=== PATIENT | female | born 1995 | race Native Hawaiian/Other Pacific Islander ===

== ENCOUNTER → 2022-04-13 | Outpatient (CLI) | payer OTHER | LOC: COL.RAD 10:47 | DX: N93.9 Abnormal uterine and vaginal bleeding, unspecified (principal) ==

== ENCOUNTER 2023-11-22 03:05 | Outpatient (CLI) | payer OTHER ==
[~2023-11-22] VITALS: Ht 154.9 cm; Wt 89.1 kg
[~2023-11-22 03:05] MED LIST: CEPHALEXIN500 M1 PO
[2023-11-22] MEDS ORDERED: LR 1,000 ML IV PRN (03:15)
--- NOTE | 2023-11-22 03:15 | NUR ---
PATIENT ARRIVED TO UNIT VIA WHEELCHAIR STATING HER CONTRACTIONS STARTED AROUND 0245. DENIES LEAKING OF FLUID OR VAGINAL BLEEDING. STATES "SHE HAS DRANK A LOT OF WATER TODAY". PATIENT CHANGED INTO HOSPTIAL GOWN. [id number].
[2023-11-22] MEDS ORDERED: ASPIRIN 81M81 MG/TA2 PO (03:27)
[2023-11-22] MEDS ORDERED: PRENATAL TABLET PO (03:27)
[2023-11-22 04:00] VITALS: BP 116/68; PULSE 95; TEMP 98.5
[2023-11-22 04:30] VITALS: BP 121/70; PULSE 90
[2023-11-22 04:43] LABS: COLLECTION METHOD CLEAN CATCH
[2023-11-22 04:54] LABS: URINE APPEARANCE CLEAR (CLEAR/HAZY); URINE BLOOD 1+ (NEGATIVE); URINE COLOR YELLOW (YELLOW); URINE GLUCOSE NEGATIVE (NEGATIVE); URINE KETONE NEGATIVE (NEGATIVE); URINE NITRATE NEGATIVE (NEGATIVE); URINE PROTEIN(semi-quant) NEGATIVE (NEGATIVE); URINE UROBILINOGEN 0.2 E.U/dL (0.2-1.0)
[2023-11-22 05:00] VITALS: BP 111/61; PULSE 93
[2023-11-22 05:06] LABS: MUCOUS PRESENT (NOT PRESENT); URINE BACTERIA RARE /hpf (NONE SEEN); URINE RBC 0-2 /hpf (0-2); URINE WBC 0-2 /hpf (0-2)
[2023-11-22 05:30] VITALS: BP 111/69; PULSE 81
[2023-11-22] MEDS ORDERED: Terbutaline 1 MG/ML 1 ML AMP SQ ONE (05:30)
[2023-11-22 06:08] VITALS: BP 133/70; PULSE 93
--- NOTE | 2023-11-22 06:15 | NUR ---
PATIENT EDUCATED ON TAKING NEW PRESCRIPTION OF MACROBID, STAYING WELL HYDRATED, KEEPING SCHEDULED APPOINTMENTS. QUESTIONS INVITED AND ANSWERED. PATIENT AMBULATORY OFF UNIT.
== END 2023-11-22 06:15 | disposition home or self-care (01) ==
LOC: LDRO 03:05 → LDR 03:11 → LDRO 06:15
PROVIDERS: Obstetrics & Gynecology
DX: O47.02 False labor before 37 completed weeks of gestation, second trimester (principal); Z3A.23 23 weeks gestation of pregnancy
CPT/HCPCS: OP; J3105

== ENCOUNTER 2024-02-19 19:10 | Outpatient (CLI) | payer OTHER ==
[~2024-02-19] VITALS: Ht 154.9 cm; Wt 102.3 kg
[2024-02-19] VITALS (7 sets, daily range): BP systolic 126–143; BP diastolic 69–87; PULSE 81–97
[~2024-02-19 19:10] MED LIST changes: +ASPIRIN 81M81 MG/TA2 PO; +PRENATAL TABLET PO
--- NOTE | 2024-02-19 19:20 | NUR ---
G3L1 at 36 weeks and 3 days arrives to unit with complaint of headache and elevated blood pressure at home. Pt reports last blood pressure at home was 152/81 and she last took tylenol at 1530 but headache did not get better. Pt reports positive movement, denies contractions, or loss of fluid. Pt oriented to room, call light within reach, bed in low and locked position. US and toco explained and applied. Vitals obtained and blood pressure to every 15 minutes. Admission assessment started. Contraction on toco during assessment, patient unaware.
[2024-02-19] MEDS ORDERED: LR 1,000 ML IV PRN (19:45)
[2024-02-19 19:59] LABS: COLLECTION METHOD CLEAN CATCH
[2024-02-19 20:02] LABS: MEAN CELL VOLUME 72 fl (80.0-100.0); MEAN CORPUSCULAR HGB CONC 31 g/dl (33.0-37.0); MEAN PLATELET VOLUME 9.1 fl (7.4-10.4); PLATELET COUNT 319 K/mm3 (130-400); RED BLOOD COUNT 4.33 M/mm3 (4.10-5.30); REDCELL DISTRIBUTION WIDTH-CV 17.5 % (11.5-14.5)
[2024-02-19 20:10] LABS: HEMATOCRIT 31.2 % (37.0-47.0); HEMOGLOBIN 9.7 g/dl (12.5-16.0); MEAN CORPUSCULAR HEMOGLOBIN 22 pg (27-31)
[2024-02-19 20:29] LABS: ALBUMIN 2.6 g/dL (3.5-5.0); BILIRUBIN,TOTAL 0.2 mg/dL (0.2-1.2); CALCIUM 9.7 mg/dL (8.4-10.2); CREATININE, serum 0.72 mg/dL (0.57-1.11); POTASSIUM 3.9 mEq/L (3.5-4.5); TOTAL PROTEIN 7.1 g/dl (6.2-8.1)
--- NOTE | 2024-02-19 20:35 | NUR ---
Dr. Ross on unit, reviewed resulted lab values and FHR tracing. No need to check cervix per Dr. Ross. Physician then to bedside to review plan of care with patient. Plan to monitor closely at home and continue taking tylenol/tylenol PM. Pt agreeable to plan.
[2024-02-19] MEDS ORDERED: NATURAL IRON65 MG (20:37)
[2024-02-19 20:57] LABS: ANISOCYTOSIS 2+; BAND 6 % (0-10); HYPOCHROMIA 2+; LYMPHOCYTE 21 % (20.0-51.0); NEUTROPHILS 73 % (42.0-75.2); NUCLEATED RED BLOOD CELL 1 (0-6); PLATELET ESTIMATE NORMAL (NORMAL)
[2024-02-19 20:58] LABS: MICROCYTOSIS 1+
[2024-02-19 21:00] LABS: PH 5.5 (5.0-8.5); URINE APPEARANCE Cloudy (CLEAR/HAZY); URINE BLOOD 2+ (NEGATIVE); URINE COLOR DARK YELLOW (YELLOW); URINE GLUCOSE Negative (NEGATIVE); URINE KETONE 1+ (NEGATIVE); URINE NITRATE Negative (NEGATIVE); URINE PROTEIN(semi-quant) 3+ (NEGATIVE)
[2024-02-19 21:14] LABS: MUCOUS PRESENT (NOT PRESENT); URINE BACTERIA RARE /hpf (NONE SEEN)
--- NOTE | 2024-02-19 21:30 | NUR ---
Discharge instructions reviewed with patient and spouse, verbalized understanding. Pt seen ambulating off unit with spouse in stable condition.
== END 2024-02-19 21:30 | disposition home or self-care (01) ==
LOC: LDRO 19:10
PROVIDERS: Obstetrics & Gynecology
DX: O26.893 Other specified pregnancy related conditions, third trimester (principal); R51.9 Headache, unspecified; Z3A.36 36 weeks gestation of pregnancy